=== PATIENT | female | born 1980 | race Two or more races ===

== ENCOUNTER 2016-12-01 07:30 | Inpatient (IN) | payer OTHER ==
[2016-11-23 15:03] VITALS: BMI 33.7
--- NOTE | 2016-11-30 23:05 | P.GSHP ---
History of Present Illness H&P Date: 12/01/16 Chief Complaint: Refractory GERD 36 yrs old female presents with abdominal pain, diarrhea, no blood in stool . Refractory GERD symptoms. Takes Prilosec 20 mg daily. First cousins have Chron' s disease. No weight loss. Ct scan showed thickening of descending and sigmoid colon.Colonoscopy 08/07/16 - normal. EGD showed hiatal hernia Grade 3, H.Pylori negative. Manometry did not show scleroderma or achalasia - Review of Systems Comment: Constitutional: No fever, chills or rigors. No weight loss or loss of appetite. HEENT: No difficulty with hearing, vision and swallowing. Lymphatic: No axillary, inguinal and cervical swellings. Endocrine: No thyroid disorders. Denies history of diabetes. Respiratory: No chest pain, shortness of breath, and cough. No hemoptysis. Cardiovascular: No palpitations, irregular HR Gastrointestinal: Has heartburn. Diarrhea - intermittent Genitourinary: No increase in urinary frequency or urgency. No hematuria. Musculoskeletal: No back pain, joint stiffness or pain. Neurologic: No history of seizure disorder and headaches. Psychiatric: Denies depression or anxiety . No suicidal ideation. Hematologic: Denies any abnormal mucosal bleeding or easy bruising. Past Medical History Additional Past Medical History / Comment(s): HIATAL HERNIA History of Any Multi-Drug Resistant Organisms: None Reported Additional Past Surgical History / Comment(s): D & C ,COLONOSCOPY, EGD, VARICOSE VEIN REMOVAL BILAT LEGS Past Anesthesia/Blood Transfusion Reactions: Motion Sickness, Postoperative Nausea & Vomiting (PONV) Smoking Status: Former smoker - Past Family History Mother Family Medical History: No Reported History Medications and Allergies Home Medications Medication Instructions Recorded Confirmed Type No Known Home Medications [No 11/23/16 12/01/16 History Known Home Medications] Allergies Allergy/AdvReac Type Severity Reaction Status Date / Time No Known Allergies Allergy Verified 12/01/16 07:45 Surgical - Exam Constitutional: General Appearance: healthy-appearing, well-nourished, and well- developed. Level of Distress: NAD. Ambulation: ambulating normally. Psychiatric: Insight: good judgement. Orientation: to time, place, and person. Head: Head: normocephalic and atraumatic. Eyes: Lids and Conjunctivae: no discharge or pallor and non-injected. Sclerae: non-icteric. ENMT: Oropharynx: moist mucous membranes. Abdomen: Bowel Sounds: normal. Inspection and Palpation: no tenderness or guarding and soft and non-distended. Musculoskeletal:: Motor Strength and Tone: normal and normal tone. Joints, Bones , and Muscles: normal movement of all extremities. Extremities: no cyanosis or edema. Neurologic: Gait and Station: normal gait and station. Cranial Nerves: grossly intact. Assessment and Plan (1) Obesity (BMI 30.0-34.9) Status: Acute (2) Hiatal hernia with GERD Status: Acute Plan: 1. Refractory GERD 2. Colonoscopy and EGD findings discussed . Hiatal hernia and refractory GERD. Reduce caffeine intake 3. Informed consent obtained from the patient after explaining the risks, benefits and potential complications including bleeding, infection, pneumothorax , dysphagia, vagus nerve injury and she elected to undergo robotic assist laparoscopic hiatal hernia repair with possible mesh and Raymundo fundoplication with intraoperative EGD. 4. Bariatric preop two-week diet plan given for weight loss 5. Postoperative course explained including diet restriction and postop diet plan. No heavy lifting more than 10 pounds for 6 weeks post surgery 6. Discussed esophageal manometry results with patient. All questions answered.
[~2016-12-01 07:30] MED LIST: CHLORHEXIDINE GLUCONATE 15 ML CUP MUCOUS MEM ONE; DEXAMETHASONE SOD PHOSPHATE 10 MG/ML 1 ML VIAL IV ONE; HEPARIN SODIUM,PORCINE 5,000 UNIT/ML 1 ML VIAL SQ ONE; LACTATED RINGERS 1,000 ML IV SCH; MIDAZOLAM 2 MG/2 ML VIAL IV PRN; ONDANSETRON 4 MG/2 ML VIAL IVP ONE; PANTOPRAZOLE 40 MG/10 ML VIAL IV ONE; SCOPOLAMINE 1.5MG/72HR PATCH TRANSDERM ONE; ceFAZolin 2 GM in SODIUM CHLORIDE 0.9% 100 ML IVPB ONE
[2016-12-01] MEDS ORDERED: MIDAZOLAM 2 MG/2 ML VIAL ONE (08:47)
[2016-12-01] MEDS ORDERED: PROPOFOL 10 MG/ML 20 ML VIAL IV ONE (08:47)
[2016-12-01] MEDS ORDERED: GLYCOPYRROLATE 0.2 MG/ML 2 ML VIAL ONE (08:47)
[2016-12-01] MEDS ORDERED: LIDOCAINE 1% INJ 10MG/ML (20 ML MDV) ONE (08:47)
[2016-12-01] MEDS ORDERED: ROCURONIUM BROMIDE 10 MG/ML 10 ML VIAL IV ONE (08:47)
[2016-12-01] MEDS ORDERED: NEOSTIGMINE 1 MG/ML 10 ML VIAL ONE (08:47)
[2016-12-01] MEDS ORDERED: fentaNYL (PF) 50 MCG/ML 2 ML AMP ONE (08:47)
[2016-12-01] MEDS ORDERED: SUCCINYLCHOLINE CHLORIDE 100 MG/5 ML SYR IV ONE (08:47)
[2016-12-01] MEDS ORDERED: LACTATED RINGERS 1,000 ML IV ONE ×2 (09:10)
[2016-12-01] MEDS ORDERED: BUPIVACAIN-EPI 0.5%-1:200,000 30 ML VIAL SQ ONE (09:22)
[2016-12-01] MEDS ORDERED: NALOXONE 0.4 MG/ML 1 ML VIAL IV PRN (11:17)
[2016-12-01] MEDS ORDERED: diphenhydrAMINE 50 MG/ML 1 ML VIAL IVP PRN (11:17)
[2016-12-01] MEDS ORDERED: HYOSCYAMINE ORAL DROPS 1.875 MG/15 ML BOTTLE PO PRN (11:17)
[2016-12-01] MEDS ORDERED: ONDANSETRON 4 MG/2 ML VIAL IVP PRN (11:17)
[2016-12-01] MEDS: HYDROmorphone 1 MG/ML 1 ML SYRINGE IVP PRN ×4 (11:40→20:28)
[2016-12-01] MEDS ORDERED: ONDANSETRON 4 MG/2 ML VIAL IVP ONE (11:50)
[2016-12-01] MEDS ORDERED: MEPERIDINE 50 MG/ML SYRINGE IVP ONE (12:02)
--- NOTE | 2016-12-01 12:30 | P.OP ---
Date of Procedure: 12/01/16 Preoperative Diagnosis: Refractory GERD Obesity BMI 33.8 Postoperative Diagnosis: Same Procedure(s) Performed: Robotic-assisted laparoscopic hiatal hernia repair and Raymundo fundoplication with intraoperative EGD Implants: NA Anesthesia: RACHEL, local Surgeon: Jane Marin Pathology: none sent Condition: stable Indications for Procedure: 28 years old female presents with refractory gastroesophageal reflux disease. Informed consent obtained and patient elected undergo robotic assist laparoscopic hiatal hernia repair with mesh with intraoperative EGD Operative Findings: 5x5 cm hiatal hernia defect which was repaired primarily. 360 Raymundo fundoplication was performed over 52-[place] bougie. Intraoperative EGD was performed which showed intact wrap and no stenosis Description of Procedure: The patient was brought to the operating room and placed in supine position. General anesthesia with endotracheal intubation was performed as per anesthesia team. A Stein catheter was inserted under sterile aseptic precautions. 2 secure straps were placed. The abdomen was prepped and draped using ChloraPrep and sterile dressings were applied followed by an Ioban dressing. A 5 mm skin incision was made in left anterior axillary line and a Veress needle was inserted. Proper position was confirmed by aspiration and saline meniscus test. Pneumoperitoneum was insufflated to a pressure of 15 mm of Hg. Using 5 mm 30 laparoscope, the peritoneal cavity was entered under direct vision using the Optiview technique. Two 8 mm robotic trochars were placed in the left upper quadrant, one 12 mm trocar was placed in the supraumbilical location and one in the right lower quadrant and one 8 mm robotic trocar was placed in the right upper quadrant The patient was placed in reverse Trendelenburg position. A kristine flex liver retractor was introduced in the right subcostal port to elevate the left lobe of the liver and expose the hiatus. Sliding hiatal hernia was noted with 15% of the stomach in the thoracic cavity. The lesser omentum was opened with Vessel sealer. The incision was extended over the hiatus to the left of the jeffery. The right jeffery was identified and cleared of its investing tissue, and the dissection was then carried over the arch of the crura. The left jeffery was similarly dissected and the phrenoesophageal ligament divided. The vagus nerves were identified and protected. The esophagus was gently elevated with a closed grasper and the dissection progressed underneath the esophagus until it was fully mobilized. The hernia sac extended up to the chest and was fully mobilized and resected. The gastroepiploic vessels were ligated along the greater curvature of stomach. Care was taken not to injure spleen while dividing the short gastric vessels with Ligasure device. The stomach was completely mobilized and adequate length was obtained in the esophagus allowing at least 3 cm of intra abdominal esophagus. The hernia defect measures 5 x 5 cm. 2 figure of 8 sutures of 2-0 Ethibond were placed to close the hiatal defect posteriorly without causing undue narrowing of the esophagus. A 52-[place] bougie was passed per orally by anesthesia team. An angled grasper was passed behind the esophagus and the fundus grasped and pulled behind the esophagus. It passed easily and was easily approximated without tension to the remaining fundus, creating a 360 floppy wrap around the distal esophagus. The wrap was sutured to itself with 3 interrupted sutures of 2-0 Ethibond. The top most suture included a partial thickness bite of the esophagus to anchor the wrap. Intraoperative EGD was then performed. The scope was easily passed beyond the wrap without any undue tension or narrowing. The scope was retroflexed and the Raymundo wrap visualized. There was no air leak upon insufflation of the stomach. Excess air was suctioned and scope was removed. The liver retractor was removed. The 12 mm trocar site was closed with two transfascial sutures of 0 Vicryl. Pneumoperitoneum was evacuated and all trocar sites were examined. No evidence of bleeding. The skin incision were closed with 4-0 Monocryl followed by Dermabond skin glue. Sponge, instrument and needle count were correct x 2. Patient tolerated the procedure well and was taken to post anesthesia care unit in stable condition
[2016-12-01] MEDS: 0.9% NACL WITH KCL 20 MEQ/L 1,000 ML IV SCH ×2 (14:21→23:58)
[2016-12-01] MEDS: ALBUTEROL NEBULIZED 2.5 MG/3 ML INHALATION SCH ×4 (15:33→19:26)
[2016-12-02] MEDS: HYDROmorphone 1 MG/ML 1 ML SYRINGE IVP PRN ×3 (01:43→12:30)
[2016-12-02 05:46] LABS: Basophils % (A) 0 %; CH 30.2; CHCM 32.7; Eosinophils % (A) 0 %; HCT 35.9 % (34.0-46.0); HGB 12.1 gm/dL (11.4-16.0); Luc # (Auto) 0.17; Luc % (Auto) 2; Lymphocytes # (A) 1.3 k/uL (1.0-4.8); Lymphocytes % (A) 14 %; MCH 31.4 pg (25.0-35.0); MCHC 33.8 g/dL (31.0-37.0); MCV 92.7 fL (80.0-100.0); Mean Platelet Volume 6.9; Monocytes # (A) 0.4 k/uL (0-1.0); Monocytes % (A) 5 %; Neutrophils # (A) 7.3 k/uL (1.3-7.7); Neutrophils % (A) 79 %; RBC 3.87 m/uL (3.80-5.40); RDW 13.6 % (11.5-15.5); WBC 9.3 k/uL (3.8-10.6); WBC (Perox) 10.01
[2016-12-02 06:02] LABS: Anion Gap 9 mmol/L; Blood Urea Nitrogen 6 mg/dL (7-17); Calcium 8.9 mg/dL (8.4-10.2); Carbon Dioxide 23 mmol/L (22-30); Chloride 108 mmol/L (98-107); Magnesium 1.8 mg/dL (1.6-2.3); Non-African American GFR(MDRD) >60 (>60 ml/min/1.73 sqM); Phosphorous 3.7 mg/dL (2.5-4.5); Potassium 4.7 mmol/L (3.5-5.1); Sodium 140 mmol/L (137-145)
[2016-12-02] MEDS: ALBUTEROL NEBULIZED 2.5 MG/3 ML INHALATION SCH ×4 (09:08→21:33)
[2016-12-02] MEDS: 0.9% NACL WITH KCL 20 MEQ/L 1,000 ML IV SCH (09:10)
[2016-12-02] MEDS: PANTOPRAZOLE 40 MG/10 ML VIAL IV SCH (09:11)
--- NOTE | 2016-12-02 09:15 | FL ---
EXAMINATION TYPE: FL UGI DATE OF EXAM: 12/02/2016 COMPARISON: NONE HISTORY: Status post Beto fundoplication TECHNIQUE: A single contrast UGI study is performed. FINDINGS: Ana there is moderate hesitancy of contrast passing through the ascending fundoplication. No hiatal hernia is evident. No complete obstruction is evident. Extravasation is not evident. No significant free air is identified. IMPRESSIONS: 1. Normal post Beto fundoplication with moderate hesitancy. No extravasation.
[2016-12-02] MEDS: HYDROcodone/APAP 5-325MG 1 EACH TAB PO PRN ×2 (17:24→23:12)
[2016-12-03 07:54] VITALS: BP 135/88; PULSE 84; RESP 20; TEMP 97.9
[2016-12-03] MEDS: HYDROcodone/APAP 5-325MG 1 EACH TAB PO PRN (08:33)
[2016-12-03] MEDS: ALBUTEROL NEBULIZED 2.5 MG/3 ML INHALATION SCH (08:48)
[2016-12-03] MEDS: PANTOPRAZOLE 40 MG/10 ML VIAL IV SCH (08:49)
== END 2016-12-03 10:20 | disposition home or self-care (01) | DRG 328 ==
LOC: 2ORWHC 07:31 → 6PED 11:36
PROVIDERS: ADMIT Surgery; ATTEND Surgery
PROC: 0DJ08ZZ Inspection of Upper Intestinal Tract, Via Natural or Artificial Opening Endoscopic (ICD-10-PCS; principal; 2016-12-01 08:30)
PROC: 0BQR4ZZ (ICD-10-PCS; principal; 2016-12-01 08:30)
PROC: 0BQS4ZZ (ICD-10-PCS; principal; 2016-12-01 08:30)
PROC: 8E0W4CZ Robotic Assisted Procedure of Trunk Region, Percutaneous Endoscopic Approach (ICD-10-PCS; principal; 2016-12-01 08:30)
PROC: 0DV44ZZ Restriction of Esophagogastric Junction, Percutaneous Endoscopic Approach (ICD-10-PCS; principal; 2016-12-01 08:30)
DX: K44.9 Diaphragmatic hernia without obstruction or gangrene (principal); E66.9 Obesity, unspecified; K21.9 Gastro-esophageal reflux disease without esophagitis; Z68.33 Body mass index [BMI] 33.0-33.9, adult; Z79.899 Other long term (current) drug therapy; Z87.891 Personal history of nicotine dependence
CPT/HCPCS: 74240; 80051; 81025; 82310; 82565; 83735; 84100; 84520; 85025; 86850; 86900; 86901; 94640; 94760; 94762